=== PATIENT | female | born 1940 | race Caucasian/White ===

== ENCOUNTER 2018-09-19 11:18 | Emergency (ER) | payer BC ==
[2018-09-19 14:59] LABS: ADD MAN DIFF? NO
[2018-09-19 15:00] LABS: WHITE BLOOD COUNT 3.7 10^3/ul (4.8-10.8)
[2018-09-19 15:00] LABS: BASOPHILS % 0.3 % (0.0-2.0); EOSINOPHILS # 0.1 10^3/ul (0.0-0.5); EOSINOPHILS % 1.4 % (0.0-7.0); HEMATOCRIT 35.3 % (37.0-47.0); HEMOGLOBIN 11.6 g/dl (12.0-16.0); LYMPHOCYTES # 1.3 10^3/ul (0.8-2.9); MEAN CORPUSCULAR HEMOGLOBIN 31.3 pg (29.0-33.0); MEAN CORPUSCULAR HGB CONC 32.9 g/dl (32.0-37.0); MEAN CORPUSCULAR VOLUME 95.1 fl (82.0-101.0); MEAN PLATELET VOLUME 9.7 fl (7.4-10.4); MONOCYTE # 0.4 10^3/ul (0.3-0.9); MONOCYTES % 10.6 % (0.0-11.0); NEUTROPHILS % 53.4 % (39.0-77.0); PLATELET COUNT 183 10^3/UL (140-415); RED BLOOD COUNT 3.71 10^6/ul (4.20-5.40); RED CELL DISTRIBUTION WIDTH 11.9 % (11.5-14.5)
[2018-09-19 15:17] LABS: ANION GAP 9 (5-13); BLOOD UREA NITROGEN 24 mg/dl (7-20); CALCIUM 9.7 mg/dl (8.4-10.2); CARBON DIOXIDE 26 mmol/L (21-31); CHLORIDE 107 mmol/L (97-110); CREATININE 0.76 mg/dl (0.44-1.00); GLUCOSE 90 mg/dl (70-220); SODIUM 142 mmol/L (135-144)
[2018-09-19 15:29] LABS: TROPONIN-I < 0.012 ng/ml (0.000-0.120)
[2018-09-19] MEDS: SOD CHLORIDE 0.9% 100 ML (16:20)
[2018-09-19] MEDS: IOHEXOL 100 ML (16:20)
== END 2018-09-19 18:00 | disposition home or self-care (01) ==
LOC: E/R 11:18
DX: I10 Essential (primary) hypertension (principal); D64.9 Anemia, unspecified; D72.819 Decreased white blood cell count, unspecified; E03.9 Hypothyroidism, unspecified; R40.2142 Coma scale, eyes open, spontaneous, at arrival to emergency department; R40.2362 Coma scale, best motor response, obeys commands, at arrival to emergency department; R40.2252 Coma scale, best verbal response, oriented, at arrival to emergency department; Z79.82 Long term (current) use of aspirin
CPT/HCPCS: 36415; 71045; 71275; 80048; 84484; 85025; 93005; 99285-25

== ENCOUNTER 2019-03-11 15:22 | Inpatient (IN) | payer BC ==
[2019-03-11] MEDS: LORAZEPAM 0.5 MG TAB PO (16:02)
[2019-03-11 16:11] LABS: ADD MAN DIFF? NO
[2019-03-11 16:14] LABS: WHITE BLOOD COUNT 6.7 10^3/ul (4.8-10.8)
[2019-03-11 16:14] LABS: BASOPHILS % 0.3 % (0.0-2.0); EOSINOPHILS % 0.3 % (0.0-7.0); HEMATOCRIT 34.9 % (37.0-47.0); HEMOGLOBIN 11.7 g/dl (12.0-16.0); LYMPHOCYTES % 14.7 % (15.0-51.0); MEAN CORPUSCULAR HEMOGLOBIN 32.5 pg (29.0-33.0); MEAN CORPUSCULAR HGB CONC 33.5 g/dl (32.0-37.0); MEAN CORPUSCULAR VOLUME 96.9 fl (82.0-101.0); MEAN PLATELET VOLUME 8.7 fl (7.4-10.4); MONOCYTE # 0.4 10^3/ul (0.3-0.9); MONOCYTES % 5.2 % (0.0-11.0); NEUTROPHIL # 5.3 10^3/ul (1.6-7.5); NEUTROPHILS % 79.2 % (39.0-77.0); PLATELET COUNT 200 10^3/UL (140-415); RED CELL DISTRIBUTION WIDTH 12.1 % (11.5-14.5)
[2019-03-11 16:33] LABS: INR 0.89; PARTIAL THROMBOPLASTIN TIME 26.8 Sec (23.0-35.0); PROTIME 12.2 Sec (11.9-14.9)
[2019-03-11 16:42] LABS: ALANINE AMINOTRANSFERASE 25 IU/L (13-69); ALBUMIN 4.3 g/dl (3.3-4.9); ALBUMIN/GLOBULIN RATIO 1.53; ALKALINE PHOSPHATASE 64 IU/L (42-121); ANION GAP 8 (5-13); ASPARTATE AMINO TRANSFERASE 24 IU/L (15-46); BILIRUBIN,INDIRECT 0.4 mg/dl (0-1.1); BILIRUBIN,TOTAL 0.4 mg/dl (0.2-1.3); BLOOD UREA NITROGEN 25 mg/dl (7-20); CALCIUM 9.7 mg/dl (8.4-10.2); CARBON DIOXIDE 25 mmol/L (21-31); CHLORIDE 104 mmol/L (97-110); CREATININE 0.95 mg/dl (0.44-1.00); GLUCOSE 179 mg/dl (70-220); POTASSIUM 4.1 mmol/L (3.5-5.1); SODIUM 137 mmol/L (135-144); TOTAL PROTEIN 7.1 g/dl (6.1-8.1)
[2019-03-11 17:34] LABS: TROPONIN-I < 0.012 ng/ml (0.000-0.120)
[2019-03-11 17:34] LABS: B-TYPE NATRIURETIC PEPTIDE 100 PG/ML (0-450)
[2019-03-11] MEDS: morphine 2 MG INJ IV ×2 (17:45→20:18)
[2019-03-11] MEDS: ONDANSETRON 4 MG INJ IV (20:17)
[2019-03-11] MEDS ORDERED: ONDANSETRON 4 MG TAB PO (21:00)
[2019-03-11] MEDS ORDERED: ONDANSETRON 4 MG INJ IV (21:00)
[2019-03-11] MEDS ORDERED: morphine 2 MG INJ IV (21:00)
[2019-03-11] MEDS ORDERED: ACETAMINOPHEN 325 MG TAB PO ×2 (21:00)
[2019-03-11] MEDS ORDERED: NACL 0.9% 3 ML SYG IV (21:00)
[2019-03-11] MEDS: HYDROCODONE/APAP (5/325) TAB PO (21:10)
[2019-03-11] MEDS: ENOXAPARIN 40 MG/0.4 ML SYG SC (21:10)
[2019-03-12 06:37] LABS: ADD MAN DIFF? NO
[2019-03-12 06:48] LABS: WHITE BLOOD COUNT 4.8 10^3/ul (4.8-10.8)
[2019-03-12 06:48] LABS: BASOPHILS % 0.2 % (0.0-2.0); EOSINOPHILS # 0.1 10^3/ul (0.0-0.5); EOSINOPHILS % 1.3 % (0.0-7.0); HEMOGLOBIN 10.9 g/dl (12.0-16.0); LYMPHOCYTES # 1.6 10^3/ul (0.8-2.9); LYMPHOCYTES % 34.2 % (15.0-51.0); MEAN CORPUSCULAR HEMOGLOBIN 32.2 pg (29.0-33.0); MEAN CORPUSCULAR VOLUME 97.6 fl (82.0-101.0); MEAN PLATELET VOLUME 9.5 fl (7.4-10.4); MONOCYTE # 0.4 10^3/ul (0.3-0.9); NEUTROPHIL # 2.6 10^3/ul (1.6-7.5); NEUTROPHILS % 55.3 % (39.0-77.0); PLATELET COUNT 158 10^3/UL (140-415); RED BLOOD COUNT 3.38 10^6/ul (4.20-5.40); RED CELL DISTRIBUTION WIDTH 12.3 % (11.5-14.5)
[2019-03-12 07:01] LABS: ALANINE AMINOTRANSFERASE 29 IU/L (13-69); ALBUMIN 3.2 g/dl (3.3-4.9); ALBUMIN/GLOBULIN RATIO 1.28; ALKALINE PHOSPHATASE 51 IU/L (42-121); ANION GAP 4 (5-13); ASPARTATE AMINO TRANSFERASE 21 IU/L (15-46); BILIRUBIN,INDIRECT 0.7 mg/dl (0-1.1); BILIRUBIN,TOTAL 0.7 mg/dl (0.2-1.3); BLOOD UREA NITROGEN 21 mg/dl (7-20); CALCIUM 9.2 mg/dl (8.4-10.2); CARBON DIOXIDE 28 mmol/L (21-31); CHLORIDE 107 mmol/L (97-110); CREATININE 0.79 mg/dl (0.44-1.00); GLUCOSE 75 mg/dl (70-220); MAGNESIUM 2.1 mg/dl (1.7-2.5); SODIUM 139 mmol/L (135-144); TOTAL PROTEIN 5.7 g/dl (6.1-8.1)
[2019-03-12] MEDS ORDERED: DOCUSATE SODIUM 250 MG CAP PO (08:00)
[2019-03-12] MEDS: CHOLECALCIFEROL 1,000 UNIT TAB PO (08:29)
[2019-03-12] MEDS: ASPIRIN 81 MG TAB PO (08:29)
[2019-03-12] MEDS: PANTOPRAZOLE (EC) 40 MG TAB PO (08:30)
[2019-03-12] MEDS: LEVOTHYROXINE 25 MCG TAB PO (08:30)
[2019-03-12] MEDS: CALCIUM CARBONATE 1.25 GM TAB PO (08:30)
[2019-03-12] MEDS: LISINOPRIL 10 MG TAB PO (08:31)
[2019-03-12] MEDS ORDERED: ALGAL OIL PO (09:00)
[2019-03-12] MEDS ORDERED: LEVOMEFOLATE PO (09:00)
[2019-03-12] MEDS ORDERED: B12 PO (09:00)
[2019-03-12] MEDS ORDERED: DIOSMIN COMPLEX NO 1 PO (09:00)
[2019-03-12] MEDS ORDERED: B6 PO (09:00)
[2019-03-12] MEDS: ATORVASTATIN 10 MG TAB PO (21:24)
[2019-03-12] MEDS: ENOXAPARIN 40 MG/0.4 ML SYG SC (21:28)
[2019-03-13] MEDS: LEVOTHYROXINE 25 MCG TAB PO (06:29)
[2019-03-13] MEDS: PANTOPRAZOLE (EC) 40 MG TAB PO (06:29)
[2019-03-13] MEDS: CHOLECALCIFEROL 1,000 UNIT TAB PO (08:19)
[2019-03-13] MEDS: ASPIRIN 81 MG TAB PO (08:19)
[2019-03-13] MEDS: LISINOPRIL 10 MG TAB PO (08:19)
[2019-03-13] MEDS: CALCIUM CARBONATE 1.25 GM TAB PO (08:19)
[2019-03-13 12:31] LABS: CHOL/HDL RATIO 3.7 RATIO; HDL CHOLESTEROL 49 mg/dl (33-92); LDL CHOLESTEROL,CALCULATED 112 mg/dl; TRIGLYCERIDES 116 mg/dl (0-149)
[2019-03-13 12:31] LABS: CHOLESTEROL 184 mg/dl (100-200)
[2019-03-13] MEDS: ATORVASTATIN 10 MG TAB PO (20:44)
[2019-03-13] MEDS: ENOXAPARIN 40 MG/0.4 ML SYG SC (20:46)
[2019-03-14 05:06] LABS: ADD MAN DIFF? NO
[2019-03-14] MEDS: BISACODYL (EC) 5 MG TAB PO (05:13)
[2019-03-14 05:14] LABS: BASOPHILS % 0.5 % (0.0-2.0); EOSINOPHILS # 0.1 10^3/ul (0.0-0.5); HEMATOCRIT 34.7 % (37.0-47.0); HEMOGLOBIN 11.2 g/dl (12.0-16.0); LYMPHOCYTES # 1.3 10^3/ul (0.8-2.9); LYMPHOCYTES % 31.7 % (15.0-51.0); MEAN CORPUSCULAR HEMOGLOBIN 31.8 pg (29.0-33.0); MEAN CORPUSCULAR HGB CONC 32.3 g/dl (32.0-37.0); MEAN CORPUSCULAR VOLUME 98.6 fl (82.0-101.0); MEAN PLATELET VOLUME 9.4 fl (7.4-10.4); MONOCYTE # 0.3 10^3/ul (0.3-0.9); MONOCYTES % 8.5 % (0.0-11.0); NEUTROPHIL # 2.3 10^3/ul (1.6-7.5); NEUTROPHILS % 57.1 % (39.0-77.0); PLATELET COUNT 174 10^3/UL (140-415); RED BLOOD COUNT 3.52 10^6/ul (4.20-5.40); RED CELL DISTRIBUTION WIDTH 12.3 % (11.5-14.5)
[2019-03-14 05:57] LABS: ANION GAP 4 (5-13); BLOOD UREA NITROGEN 19 mg/dl (7-20); CALCIUM 9.1 mg/dl (8.4-10.2); CARBON DIOXIDE 30 mmol/L (21-31); CHLORIDE 104 mmol/L (97-110); CREATININE 0.94 mg/dl (0.44-1.00); GLUCOSE 97 mg/dl (70-220); POTASSIUM 4.3 mmol/L (3.5-5.1); SODIUM 138 mmol/L (135-144)
[2019-03-14] MEDS: PANTOPRAZOLE (EC) 40 MG TAB PO (06:14)
[2019-03-14] MEDS: LEVOTHYROXINE 25 MCG TAB PO (06:14)
[2019-03-14 06:25] LABS: PHOSPHORUS 4.3 mg/dl (2.5-4.9)
[2019-03-14 06:25] LABS: MAGNESIUM 2.1 mg/dl (1.7-2.5)
[2019-03-14] MEDS: CHOLECALCIFEROL 1,000 UNIT TAB PO (08:45)
[2019-03-14] MEDS: LISINOPRIL 10 MG TAB PO (08:45)
[2019-03-14] MEDS: ASPIRIN 81 MG TAB PO (08:45)
[2019-03-14] MEDS: CALCIUM CARBONATE 1.25 GM TAB PO (08:45)
[2019-03-14] MEDS: ATORVASTATIN 10 MG TAB PO (21:02)
[2019-03-14] MEDS: ENOXAPARIN 40 MG/0.4 ML SYG SC (21:06)
[2019-03-15] MEDS: DOCUSATE SODIUM 100 MG CAP PO (06:07)
[2019-03-15] MEDS: PANTOPRAZOLE (EC) 40 MG TAB PO (06:07)
[2019-03-15] MEDS: LEVOTHYROXINE 25 MCG TAB PO (06:07)
[2019-03-15] MEDS: ASPIRIN 81 MG TAB PO (09:28)
[2019-03-15] MEDS: CALCIUM CARBONATE 1.25 GM TAB PO (09:28)
[2019-03-15] MEDS: CHOLECALCIFEROL 1,000 UNIT TAB PO (09:28)
[2019-03-15] MEDS: LISINOPRIL 10 MG TAB PO (09:29)
== END 2019-03-15 17:25 | DRG 563 ==
LOC: FTE 15:22 → 2NE 20:42
PROC: 0RSKXZZ Reposition Left Shoulder Joint, External Approach (ICD-10-PCS; principal; 2019-03-11)
DX: S43.005A Unspecified dislocation of left shoulder joint, initial encounter (principal); S42.292A Other displaced fracture of upper end of left humerus, initial encounter for closed fracture; S43.431A Superior glenoid labrum lesion of right shoulder, initial encounter; I50.9 Heart failure, unspecified; I11.0 Hypertensive heart disease with heart failure; E03.9 Hypothyroidism, unspecified; E78.5 Hyperlipidemia, unspecified; Z79.82 Long term (current) use of aspirin; Z86.011 Personal history of benign neoplasm of the brain; W01.0XXA Fall on same level from slipping, tripping and stumbling without subsequent striking against object, initial encounter; Y93.01 Activity, walking, marching and hiking; Y92.009 Unspecified place in unspecified non-institutional (private) residence as the place of occurrence of the external cause
CPT/HCPCS: 71045; 73030; 73080-LT; 73090; 73130-LT; 73200; 80048; 80053; 80061; 83735; 83880; 84100; 84484; 85025; 85610; 85730; 93005; 96374; 96375; 96376; 97110; 97116; 97162; 97530; 99285-25; G0378